=== PATIENT | female | born 1980 | race American Indian/Alaskan Native ===

== ENCOUNTER 2017-03-21 13:38 | Emergency (ER) | payer BC ==
[2017-03-21 13:50] VITALS: BP 155/85
--- NOTE | 2017-03-21 14:57 | ED ---
Throat Pain/Nasal Congestion - HPI Summary HPI Summary: 36 yo F. 3 nights ago awoke with right eye pain. 2 days ago both eyes started to hurt and started a frontal LOCK. 1 night ago when lying down, felt like peripheral vision was limited. Right eye red. LOCK and eye pain worse with lying down. Uses contacts and glasses. No known trauma. Does have some postnasal drip. - History of Current Complaint Chief Complaint: UCHeadache Time Seen by Provider: 03/21/17 14:34 Hx Obtained From: Patient - Epiglottits Risk Factors Epiglottis Risk Factors: Negative - Allergies/Home Medications Allergies/Adverse Reactions: Allergies Allergy/AdvReac Type Severity Reaction Status Date / Time Erythromycin Allergy Intermediate Hives Verified 03/21/17 13:51 Penicillins Allergy Swelling Verified 03/21/17 13:51 Home Medications: Home Medications Ascorbic Acid TAB* [Vitamin C TAB*] 500 mg PO DAILY 03/21/17 [History Confirmed 03/21/17] [id number] [Calcium & Magnesium + Zin 334-134-5 mg] 1 tab PO DAILY 03/21/17 [History Confirmed 03/21/17] Cholecalciferol TAB* [Vitamin D TAB*] 2,000 units PO DAILY 03/21/17 [History Confirmed 03/21/17] PMH/Surg Hx/FS Hx/Imm Hx Previously Healthy: Yes Endocrine/Hematology History: Reports: Hx Blood Disorders Neurological History: Reports: Hx Transient Ischemic Attacks (TIA) - Surgical History Surgery Procedure, Year, and Place: c section x1 Infectious Disease History: No Infectious Disease History: Denies: Traveled Outside the [place] in Last 30 Days - Family History Known Family History: Positive: Other - FAM HX VERICOSE VEINS - Social History Alcohol Use: Occasionally Alcohol Amount: dark lager Substance Use Type: Reports: None Smoking Status (MU): Never Smoked Tobacco Review of Systems Positive: Photophobia, Blurred Vision Positive: Nasal Discharge Cardiovascular: Negative Respiratory: Negative Gastrointestinal: Negative Genitourinary: Negative Musculoskeletal: Negative Skin: Negative Positive: Headache Psychological: Normal All Other Systems Reviewed And Are Negative: Yes Physical Exam Triage Information Reviewed: Yes Vital Signs On Initial Exam: Initial Vitals Temp Pulse Resp BP Pulse Ox 98.9 F 96 16 155/85 100 03/21/17 13:44 03/21/17 13:44 03/21/17 13:44 03/21/17 13:44 03/21/17 13:44 Appearance: Positive: Well-Appearing, No Pain Distress, Well-Nourished Skin: Positive: Warm, Skin Color Reflects Adequate Perfusion Head/Face: Positive: Normal Head/Face Inspection Eyes: Positive: Other: - 3mm pupils, reactive. Positive rt scleral injection. Unable to visualize the retina. Neck: Positive: Supple Respiratory/Lung Sounds: Positive: Clear to Auscultation Cardiovascular: Positive: Normal, RRR Musculoskeletal: Positive: Normal, Strength/ROM Intact Neurological: Positive: Normal, Sensory/Motor Intact - gcs 15, Alert, Oriented to Person Place, Time, CN Intact II-III Psychiatric: Positive: Normal AVPU Assessment: Alert - Alicia Coma Scale Best Eye Response: 4 - Spontaneous Best Motor Response: 6 - Obeys Commands Best Verbal Response: 5 - Oriented Diagnostics - Vital Signs Vital Signs Temp Pulse Resp BP Pulse Ox 03/21/17 13:44 98.9 F 96 16 155/85 100 - Laboratory Lab Statement: Any lab studies that have been ordered have been reviewed, and results considered in the medical decision making process. EENT Course/Dx - Course Course Of Treatment: DISCUSSED WITH DR GAMA, NEUROLOGY. CT BRAIN NEGATIVE. PATIENT WENT DIRECTLY TO DR AUSTIN'S OFFICE FROM THE CLINIC. I SPOKE WITH THE PATIENT AFTER SHE SAW THE SENIOR MIL[facility] ANALYST; THEY SAW [employer]NEAL ULCERS AND THE BACK OF HER EYE WAS NORMAL,. SHE WAS TOLD THE CORNEAL ULCERS WERE HEALING AND THEY WERE PROBABLY CAUSED BY HER CONTACT LENSES AND THE ULCERS WILL GIVE HER THE SX SHE IS EXPERIENCING. I DISCUSSED THIS WITH DR GAMA; WITH NO PAPILLEDEMA AND AND OPTIC CUSE FOR THE PAIN, THERE IS NO NEED FOR FURTHER IMAGING (MR VENOGRAM OF THE BRAIN WAS CONSIDERED PRIOR TO OPHTHAMOLOGY EVALUATION). THIS WAS ALL DISCUSSED WITH THE PATIENT. - Diagnoses Provider Diagnoses: Frontal headache, B/L eye pain Discharge - Discharge Plan Condition: Stable Disposition: HOME Patient Education Materials: Blurred Vision (ED), Eye Pain (ED), General Headache (ED) Referrals: Ramirez Diaz MD [Primary Care Provider] - Additional Instructions: GO DIRECTLY TO THE SENIOR MILITARY ANALYST, DR AUSTIN, FOR AN EYE EXAM. I WILL DISCUSS YOUR CASE WITH NEUROLOGY AND CALL YOU TO LET YOU KNOW IF HE RECOMMENDS YOU GO TO THE EMERGENCY DEPARTMENT FOR FURTHER EVALUATION AND TESTING. FOLLOW UP WITH YOUR DOCTOR. GO TO THE EMERGENCY DEPARTMENT FOR ANY WORSENING OF YOUR CONDITION OR QUESTIONS OR CONCERNS.
--- NOTE | 2017-03-21 15:23 | RAD ---
Indication: Bilateral temporal frontal headaches with eye pressure. Light sensitivity. Denies fever. History of TIAs. Comparison: No relevant prior exams available on the [facility] for comparison. Technique: Noncontrast CT vertex of skull through foramen magnum. Report: The sulci, ventricles, and basal cisterns are normal for age. Taylor matter white matter differentiation is preserved without evidence for edema. No intra or extra axial hemorrhage, mass, or fluid collection detected. Unremarkable partially visualized orbital contents. Unremarkable calvarium and skull base. Unremarkable scalp. The visualized paranasal sinuses and mastoid air spaces are clear. IMPRESSION: Negative unenhanced head CT.
== END 2017-03-21 15:27 | disposition home or self-care (01) ==
LOC: UCEAST 13:38
DX: R51 Headache (principal); H57.13 Ocular pain, bilateral; Z88.1 Allergy status to other antibiotic agents; Z88.0 Allergy status to penicillin; Z86.73 Personal history of transient ischemic attack (TIA), and cerebral infarction without residual deficits
CPT/HCPCS: 70450; 99211; G0463

== ENCOUNTER 2018-04-07 13:12 | Emergency (ER) | payer BC ==
--- NOTE | 2018-04-07 14:35 | ED ---
Abdominal Pain/Female - HPI Summary HPI Summary: A 38 y/o F presents to ED with c/o diffuse abd tenderness onset 4-5 days ago and worsening. The abd pain is radiating to the lower back. Associated sx: diarrhea, fever, rapid HR, frequency, mild LE ache. She notes having had a DVT previously and states the LE ache currently does not feel similar to that. Denies vaginal discharge. [facility]: Last period was 10 days ago which was 1 week early, which is unusual for her. She is not currently menstruating. It was a nml flow. Surgical hx includes . She takes a baby aspirin daily. ' - History of Current Complaint Chief Complaint: EDAbdPain Stated Complaint: ABD PAIN/BACK PAIN Time Seen by Provider: 04/07/18 14:30 Hx Obtained From: Patient Hx Last Menstrual Period: 03/06/17 Onset/Duration: Gradual Onset, Lasting Days, Still Present Timing: Constant Severity Initially: Moderate Severity Currently: Severe Pain Intensity: 9 Pain Scale Used: 0-10 Numeric Location: Diffuse Radiates: Yes Radiates to: Back - lower Associated Signs and Symptoms: Positive: Fever, Back Pain, Urinary Symptoms - frequency, Diarrhea, Other: - pos: LE ache, rapid HR. Negative: Vaginal Bleeding, Vaginal Discharge Allergies/Adverse Reactions: Allergies Allergy/AdvReac Type Severity Reaction Status Date / Time erythromycin base Allergy Hives Verified 04/07/18 13:23 [From Erythrocin] Penicillins Allergy Swelling Verified 04/07/18 13:23 PMH/Surg Hx/FS Hx/Imm Hx Previously Healthy: No Endocrine/Hematology History: Reports: Hx Blood Disorders Neurological History: Reports: Hx Transient Ischemic Attacks (TIA) - Surgical History Surgery Procedure, Year, and Place: c section x1 Infectious Disease History: No Infectious Disease History: Denies: Traveled Outside the [place] in Last 30 Days - Family History Known Family History: Positive: Other - FAM HX VERICOSE VEINS - Social History Occupation: Unemployed - OTHER Lives: With Family Alcohol Use: Occasionally Alcohol Amount: dark lager Substance Use Type: Reports: None Smoking Status (MU): Never Smoked Tobacco Review of Systems Positive: Fever Positive: Palpitations - rapid HR Positive: Abdominal Pain, Diarrhea Positive: frequency. Negative: discharge - vaginal Musculoskeletal: Other - pos: lower back pain, mild LE ache All Other Systems Reviewed And Are Negative: Yes Physical Exam - Summary Physical Exam Summary: Appearance: Well-appearing, Moderate obesity, lying in bed comfortably Skin: Warm, dry, no obvious rash Eyes: sclera anicteric, no conjunctival pallor ENT: mucous membranes moist, pharynx appears normal Neck: Supple, nontender Respiratory: Clear to auscultation, no signs of respiratory distress Cardiovascular: Tachy. No murmurs. Normal distal pulses in tibial and radial bilaterally. Abdomen: Soft, generalized abd tenderness with no overt peritoneal signs, normal active bowel sounds present Musculoskeletal: Normal, Strength/ROM Intact Neurological: A&Ox3, awake and alert, mentation is normal, speech is fluent and appropriate Psychiatric: affect is normal, does not appear anxious or depressed Triage Information Reviewed: Yes Vital Signs On Initial Exam: Initial Vitals Temp Pulse Resp BP Pulse Ox 99.7 F 135 18 166/85 100 04/07/18 13:18 04/07/18 13:18 04/07/18 13:18 04/07/18 13:18 04/07/18 13:18 Vital Signs Reviewed: Yes Diagnostics - Vital Signs Vital Signs Temp Pulse Resp BP Pulse Ox 04/07/18 14:17 99.2 F 137 18 146/87 100 04/07/18 13:18 99.7 F 135 18 166/85 100 - Laboratory Result Diagrams: 04/07/18 14:41 04/07/18 14:41 Lab Statement: Any lab studies that have been ordered have been reviewed, and results considered in the medical decision making process. - CT A/P CT CT Interpretation Completed By: Radiologist Summary of CT Findings: IMPRESSION: No evidence of obstructive uropathy is noted. No other masses or fluid collections are noted. There is left-sided extrarenal pelvis noted. Nonobstructing calculi is noted in the mid and lower pole of the left kidney. ED provider has reviewed this report. Re-Evaluation - Re-Evaluation 1 Re-Evaluation Time: 17:57 Change: Improved Comment: Discussing results with pt. Pt is feeling better and is ready for D/C. Abdominal Pain Fem Course/Dx - Course Course Of Treatment: Pt is a 38 y/o F presenting with diffuse abd tenderness onset 4-5 days ago and worsening. The abd pain is radiating to the lower back. Associated sx: diarrhea, fever, rapid HR, frequency, mild LE ache. Denies vaginal discharge. [facility]: Last period was 10 days ago which was 1 week early. Surgical hx includes . She takes a baby aspirin daily. UA results are WNL. A/P CT shows "No evidence of obstructive uropathy is noted. No other masses or fluid collections are noted. There is left-sided extrarenal pelvis noted. Nonobstructing calculi is noted in the mid and lower pole of the left kidney." Lab works shows WBCs: 20.5, Abs Neuts: 19.68, Lactic acid: 2.2, CRP: 12.68. Will discharge patient home with Dicyclomine and Zofran. - Diagnoses Differential Diagnosis: Positive: Appendicitis, Diverticulitis, Ovarian Cyst, Pancreatitis, Renal Colic, Urinary Tract Infection Provider Diagnoses: Acute abdominal pain Discharge - Sign-Out/Discharge Documenting (check all that apply): Patient Departure - DC - Discharge Plan Condition: Good Disposition: HOME Prescriptions: Dicyclomine CAP* [Bentyl CAP*] 10 mg PO TID PRN #14 cap PRN Reason: Pain - Abdominal Ondansetron ODT TAB* [Zofran 4 MG Odt TAB*] 8 mg PO Q6H PRN #14 tab.odt PRN Reason: Nausea Patient Education Materials: Acute Abdominal Pain (ED) Referrals: Ramirez Diaz MD [Primary Care Provider] - Additional Instructions: The tests we did here showed a elevated white blood cell count, but the urinalysis and CT scan of your abdomen are both normal. I suspect your suffering from a viral infection in your gut as the cause of your symptoms. I have prescribed some medication to help with the nausea and vomiting as well as the abdominal pain, and you should get plenty of fluids to stay hydrated. If your symptoms are not abating over the next couple of days I would like to see you back in the ED. - Billing Disposition and Condition Condition: GOOD Disposition: Home - Attestation Statements Document Initiated by Cortneyibe: Yes Documenting Scribe: Donta Rodriguez Provider For Whom Chris is Documenting (Include Credential): Dr. David Hardy MD Scribe Attestation: I, Donta Rodriguez scribed for Dr. David Hardy MD on 04/07/18 at 1934. Scribe Documentation Reviewed: Yes Provider Attestation: The documentation as recorded by the scribe, Donta Rodriguez accurately reflects the service I personally performed and the decisions made by me, Dr. David Hardy MD Status of Scribe Document: Viewed
[2018-04-07] MEDS ORDERED: Morphine VIAL* 4 MG/ML VIAL (1 ml vial) IV ONE (14:37)
[2018-04-07] MEDS: NS 0.9% 1000 ML* 3,000 ML IV ONE ×2 (14:56→18:06)
[2018-04-07 15:05] LABS: Hematocrit 43 % (35-47); Hemoglobin 14.8 g/dl (12.0-16.0); Mean Corpuscular HGB Conc 34 g/dl (31-36); Mean Corpuscular Hemoglobin 31 pg (27-31); Mean Corpuscular Volume 90 fL (80-97); Mean Platelet Volume 8.7 fL (7.4-10.4); Platelet Count 225 10^3/ul (150-450); Red Blood Count 4.78 10^6/ul (4.00-5.40); Red Cell Distribution Width 14 % (10.5-15); White Blood Count 20.5 10^3/ul (3.5-10.8)
[2018-04-07 15:25] LABS: ABS Neutrophils 19.68 10^3/ul (1.5-7.7); Lymphocytes % 4 %; Neutrophil % 96 %
[2018-04-07 15:29] LABS: ALT 20 U/L (7-52); AST 14 U/L (13-39); Albumin 4.2 g/dL (3.2-5.2); Albumin/Globulin Ratio 1.5 (1-3); Alkaline Phosphatase 40 U/L (34-104); Anion Gap 8 mmol/L (2-11); Blood Urea Nitrogen 9 mg/dL (6-24); C Reactive Protein 12.68 mg/L (<8.01); CO2 Carbon Dioxide 24 mmol/L (22-32); Calcium 9.2 mg/dL (8.6-10.3); Chloride 106 mmol/L (101-111); EGFR Non-African American 96.3 (>60); Globulin 2.8 g/dL (2-4); Glucose 82 mg/dL (70-100); Potassium 3.5 mmol/L (3.5-5.0); Sodium 138 mmol/L (135-145)
[2018-04-07 15:34] LABS: HCG Pregnancy < 0.60 mIU/mL
[2018-04-07] MEDS ORDERED: Iohexol 300* (CONTRAST) 10 ML SDV IV ONE (15:40)
[2018-04-07] MEDS ORDERED: Ondansetron INJ* 2 MG/ML VIAL IV ONE (16:29)
[2018-04-07 16:33] LABS: Urine Appearance Clear; Urine Bilirubin Negative (Negative); Urine Blood Negative (Negative); Urine Color Yellow; Urine Glucose Negative (Negative); Urine Ketones Negative (Negative); Urine Nitrite Negative (Negative); Urine Protein Negative (Negative); Urine Urobilinogen Negative (Negative)
[2018-04-07] MEDS ORDERED: Dicyclomine CAP* 10 MG PO ONE (18:25)
[2018-04-07] MEDS ORDERED: oxyCODONE TAB* 5 MG TAB PO ONE (18:26)
[2018-04-07 21:58] VITALS: BP 112/70
== END 2018-04-07 22:12 | disposition home or self-care (01) ==
LOC: ED 13:12
DX: R10.9 Unspecified abdominal pain (principal); Z86.73 Personal history of transient ischemic attack (TIA), and cerebral infarction without residual deficits; Z79.82 Long term (current) use of aspirin; N20.0 Calculus of kidney
CPT/HCPCS: 36415; 74177; 80053; 81003; 83605; 83690; 84702; 85025; 86140; 87040; 96361; 96374; 96375; 99284; A9270-GY; J2270; J2405; Q9967

== ENCOUNTER → 2018-04-08 18:52 | Emergency (ER) | payer BC ==
[~2018-04-08 18:52] MED LIST: LORazepam INJ* 2 MG/ML 1 ML VIAL IV PUSH ONE; LORazepam TAB(*) 1 MG ONE
--- NOTE | 2018-04-08 19:21 | ED ---
Abdominal Pain/Female - HPI Summary HPI Summary: The patient is a 38 y/o F presenting to [facility] with a chief complaint of LLQ pressure radiating to left lower back tonight while eating dinner tonight. She presented to the ED yesterday with similar symptoms, but tonight she additionally had nausea without vomiting and SOB; she felt normal throughout the day. The pain has since mostly resolved to 5/10 in severity, but she was concerned about the SOB. She has not taken any medication to treat the pain FIRST CRUSHER. Surgical hx includes and uterine polyp removal. She denies hx of panic attacks. - History of Current Complaint Chief Complaint: EDAbdPain Stated Complaint: ABD PAIN Time Seen by Provider: 04/08/18 19:02 Hx Obtained From: Patient Hx Last Menstrual Period: 03/06/17 Onset/Duration: Sudden Onset, Lasting Hours - starting an hour FIRST CRUSHER, Still Present Timing: Hours Severity Initially: Moderate Severity Currently: Mild Pain Intensity: 5 Pain Scale Used: 0-10 Numeric Location: Discrete At: LLQ Radiates: Yes Radiates to: Back - left Character: Other: - pressure Aggravating Factor(s): Nothing Alleviating Factor(s): Nothing Associated Signs and Symptoms: Positive: Nausea, Other: - SOB. Negative: Vomiting Allergies/Adverse Reactions: Allergies Allergy/AdvReac Type Severity Reaction Status Date / Time erythromycin base Allergy Hives Verified 04/07/18 13:23 [From Erythrocin] Penicillins Allergy Swelling Verified 04/07/18 13:23 PMH/Surg Hx/FS Hx/Imm Hx Endocrine/Hematology History: Reports: Hx Blood Disorders Denies: Hx Diabetes Neurological History: Reports: Hx Transient Ischemic Attacks (TIA) - Surgical History Surgery Procedure, Year, and Place: c section x1 Infectious Disease History: No Infectious Disease History: Denies: Traveled Outside the [place] in Last 30 Days - Family History Known Family History: Positive: Other - FAM HX VERICOSE VEINS Negative: Hypertension - Social History Alcohol Use: Occasionally Alcohol Amount: dark lager Substance Use Type: Reports: None Smoking Status (MU): Never Smoked Tobacco Review of Systems Positive: Shortness Of Breath Positive: Abdominal Pain - LLQ pressure radiating to left lower back, Nausea. Negative: Vomiting All Other Systems Reviewed And Are Negative: Yes Physical Exam - Summary Physical Exam Summary: Appearance: arrived quite anxious an tearful but in no acute distress, Well- nourished, lying in bed comfortably Skin: Warm, dry, no obvious rash Eyes: sclera anicteric, no conjunctival pallor ENT: mucous membranes moist, pharynx appears normal Neck: Supple, nontender Respiratory: Clear to auscultation, no signs of respiratory distress Cardiovascular: Normal S1, S2. No murmurs. Normal distal pulses in tibial and radial bilaterally. Abdomen: Soft, nontender, normal active bowel sounds present Musculoskeletal: Normal, Strength/ROM Intact Neurological: A&Ox3, awake and alert, mentation is normal, speech is fluent and appropriate Psychiatric: affect is normal, does not appear anxious or depressed Triage Information Reviewed: Yes Vital Signs On Initial Exam: Initial Vitals Temp Pulse Resp BP Pulse Ox 99.9 F 106 15 118/94 96 04/08/18 18:56 04/08/18 18:56 04/08/18 18:56 04/08/18 18:56 04/08/18 18:56 Vital Signs Reviewed: Yes Diagnostics - Vital Signs Vital Signs Temp Pulse Resp BP Pulse Ox 04/08/18 18:56 99.9 F 106 15 118/94 96 - Laboratory Result Diagrams: 04/08/18 19:31 04/08/18 19:31 Lab Statement: Any lab studies that have been ordered have been reviewed, and results considered in the medical decision making process. Re-Evaluation - Re-Evaluation First Eval Re-Evaluation Time: 20:55 Change: Improved Comment: I spoke with the patient about blood results and discharge home. Abdominal Pain Fem Course/Dx - Course Course Of Treatment: The patient is a 38 y/o F presenting to [facility] with a chief complaint of LLQ pressure radiating to left lower back tonight while eating dinner. She presented to the ED yesterday with similar symptoms, but tonight she additionally had nausea (without vomiting) and SOB, which has since resolved. Upon physical exam, the patient arrived quite anxious and tearful, but no acute distress. In the ED course, the patient was given Ativan. Blood work reveals slightly elevated WBCs, neutrophils, and C-reactive protein. She is diagnosed with nausea, vomiting, and dyspnea. She will be discharged home with education materials and follow up with PCP. She agrees with this plan and understands the need for return to the ED if symptoms worsen. - Diagnoses Provider Diagnoses: Nausea, Vomiting, Dyspnea Discharge - Sign-Out/Discharge Documenting (check all that apply): Patient Departure - Patient will be discharged home. - Discharge Plan Condition: Good Disposition: HOME Patient Education Materials: Acute Nausea and Vomiting (ED), Dyspnea (ED) Referrals: Ramirez Diaz MD [Primary Care Provider] - 1 Week Additional Instructions: Follow up with your primary care provider. Return to the emergency department for any new or worsening symptoms. - Billing Disposition and Condition Condition: GOOD Disposition: Home - Attestation Statements Document Initiated by Chris: Yes Documenting Scribe: Radha Orellana Provider For Whom Chris is Documenting (Include Credential): Dr. David Hardy MD Scribe Attestation: Radha Neal scribed for Dr. David Hardy MD on 04/12/18 at 0157. Scribe Documentation Reviewed: Yes Provider Attestation: The documentation as recorded by the Radha martins accurately reflects the service I personally performed and the decisions made by me, Dr. David Hardy MD Status of Scribe Document: Viewed
[2018-04-08 19:40] LABS: ABS Basophils 0 10^3/ul (0-0.2); ABS Eosinophils 0.2 10^3/ul (0-0.6); ABS Monocytes 0.4 10^3/ul (0-0.8); ABS Neutrophils 11.2 10^3/ul (1.5-7.7); ABS Nucleated RBC 0 10^3/ul; Eosinophil % 1.3 %; Hematocrit 40 % (35-47); Hemoglobin 13.4 g/dl (12.0-16.0); Lymphocyte % 7.6 %; Mean Corpuscular HGB Conc 34 g/dl (31-36); Mean Corpuscular Hemoglobin 31 pg (27-31); Mean Corpuscular Volume 91 fL (80-97); Mean Platelet Volume 8.5 fL (7.4-10.4); Nucleated Red Blood Cells % 0; Platelet Count 213 10^3/ul (150-450); Red Blood Count 4.38 10^6/ul (4.00-5.40); Red Cell Distribution Width 14 % (10.5-15); White Blood Count 12.7 10^3/ul (3.5-10.8)
[2018-04-08 19:57] LABS: Albumin 3.4 g/dL (3.2-5.2); Albumin/Globulin Ratio 1.4 (1-3); BUN/Creatinine Ratio 11.4 (8-20); C Reactive Protein 76.37 mg/L (<8.01); Calcium 8.3 mg/dL (8.6-10.3); EGFR Non-African American 82.3 (>60); Globulin 2.4 g/dL (2-4); Potassium 3.7 mmol/L (3.5-5.0); Total Bilirubin 0.4 mg/dL (0.2-1.0); Total Protein 5.8 g/dL (6.4-8.9)
[2018-04-08 21:04] VITALS: BP 109/72
== END | disposition home or self-care (01) ==
LOC: ED 18:52
DX: R11.2 Nausea with vomiting, unspecified (principal); R06.00 Dyspnea, unspecified; Z86.73 Personal history of transient ischemic attack (TIA), and cerebral infarction without residual deficits; Z88.0 Allergy status to penicillin; R10.32 Left lower quadrant pain
CPT/HCPCS: 36415; 80053; 83605; 83690; 85025; 86140; 96374; 99282; A9270-GY

== ENCOUNTER 2018-10-28 14:00 | Emergency (ER) | payer BC ==
[2018-10-28] MEDS ORDERED: NS 0.9% 1000 ML** 1,000 ML IV ONE ×2 (14:09→14:31)
--- NOTE | 2018-10-28 14:19 | ED ---
GI/ HPI - HPI Summary HPI Summary: This patient is a 38 year old F presenting to [facility] with a chief complaint of extreme diarrhea since 10/26/18. Pt reports having very watery diarrhea (approx. 20 times/day). She reports blood in stool last night. She is also 18 weeks , and feels some tightness, cramping in abdomen. Pt has had no antibiotics, used IVF, complications in previous pregnancies. Pt had a TIA about 2 months ago. Pt denies any fever, chills, erythema of eyes, sore throat, CP, SOB, cough, N/V, dysuria, hematuria, myalgia, edema, rash, or dizziness A0. - History of Current Complaint Chief Complaint: EDOBProblems Time Seen by Provider: 10/28/18 14:08 Stated Complaint: DIARRHEA AND CONTRACTIONS PER PT Hx Obtained From: Patient Hx Last Menstrual Period: 03/06/17 Onset/Duration: Started Days Ago Timing: Constant Current Severity: None Pain Intensity: 0 Location of Pain: Diffuse - lower abdominal pain Associated Signs and Symptoms: Positive: Diarrhea, Abdominal Pain, Other: - neg - erythema of eyes, sore throat, SOB, myalgia, edema, rash. Negative: Dizziness , Nausea, Vomiting, Fever, Hematuria, Dysuria, Chills, Cough, Chest Pain - Allergy/Home Medications Allergies/Adverse Reactions: Allergies Allergy/AdvReac Type Severity Reaction Status Date / Time erythromycin base Allergy Hives Verified 08/31/18 13:25 [From Erythrocin] Penicillins Allergy Swelling Verified 08/31/18 13:25 PMH/Surg Hx/FS Hx/Imm Hx Endocrine/Hematology History: Reports: Hx Blood Disorders Denies: Hx Diabetes Neurological History: Reports: Hx Transient Ischemic Attacks (TIA) - Surgical History Surgery Procedure, Year, and Place: c section x1 Infectious Disease History: No Infectious Disease History: Denies: Traveled Outside the [place] in Last 30 Days - Family History Known Family History: Positive: Other - FAM HX VERICOSE VEINS Negative: Hypertension - Social History Alcohol Use: None Alcohol Amount: dark lager Substance Use Type: Reports: None Smoking Status (MU): Never Smoked Tobacco Review of Systems Negative: Fever, Chills Negative: Erythema Negative: Sore Throat Negative: Chest Pain Negative: Shortness Of Breath, Cough Positive: Abdominal Pain, Diarrhea. Negative: Vomiting, Nausea Negative: dysuria, hematuria Negative: Myalgia, Edema Negative: Rash All Other Systems Reviewed And Are Negative: Yes Physical Exam - Summary Physical Exam Summary: Constitutional: Well-developed, Well-nourished, Alert. (-) Distressed Skin: Warm, Dry HENT: Normocephalic; Atraumatic Eyes: Conjunctiva normal Neck: Musculoskeletal ROM normal neck. (-) JVD, (-) Stridor, (-) Tracheal deviation Cardio: Rhythm regular, rate normal, Heart sounds normal; Intact distal pulses; The pedal pulses are 2+ and symmetric. Radial pulses are 2+ and symmetric. (-) Murmur Pulmonary/Chest wall: Effort normal. (-) Respiratory distress, (-) Wheezes, (-) Rales Abd: Soft, lower abdominal tenderness, (-) Distension, (-) Guarding, (-) Rebound Musculoskeletal: (-) Edema Lymph: (-) Cervical adenopathy Neuro: Alert, Oriented x3 Psych: Mood and affect Normal Triage Information Reviewed: Yes Vital Signs On Initial Exam: Initial Vitals Temp Pulse Resp BP Pulse Ox 99 F 103 18 163/88 99 10/28/18 14:01 10/28/18 14:01 10/28/18 14:01 10/28/18 14:01 10/28/18 14:01 Vital Signs Reviewed: Yes Diagnostics - Vital Signs Vital Signs Temp Pulse Resp BP Pulse Ox 10/28/18 14:01 99 F 103 18 163/88 99 - Laboratory Result Diagrams: 10/28/18 14:27 10/28/18 14:27 Lab Statement: Any lab studies that have been ordered have been reviewed, and results considered in the medical decision making process. Re-Evaluation - Re-Evaluation First Eval Re-Evaluation Time: 15:52 Change: Unchanged Comment: No change in pt status. GIGU Course/Dx - Course Course Of Treatment: This patient is a 38 year old F presenting to [facility] with a chief complaint of extreme diarrhea since 10/26/18. Pt reports having very watery diarrhea (approx. 20 times/day). She reports blood in stool last night. She is also 18 weeks , and feels some tightness, cramping in abdomen. Pt has had no antibiotics, used IVF, complications in previous pregnancies. Pt had a TIA about 2 months ago. A0. Physical exam is normal except for mild lower abdominal tenderness. Blood work obtained. WBC is 12.9, Sodium is 134, carbon dioxide is 20, BUN is 4, BUN/Creatinine Ratio is 6.8, Glucose is 101, C- Reactive Protein is 19.95. In the ED course the patient was given fluids. This patient was signed out from Dr. Hawkins to Dr. Simmons at 1600 on 10/28/18 , awaiting waiting fluid bolus and re-evaluation - Diagnoses Provider Diagnoses: Dehydration Discharge - Sign-Out/Discharge Documenting (check all that apply): Sign-Out Patient Signing out patient TO: Marisa Simmons - This patient was signed out from Dr. Hawkins to Dr. Simmons at 1600 on 10/28/18, pending disposition, awaiting waiting fluid bolus and re-evaluation Patient Received Moderate/Deep Sedation with Procedure: No - Discharge Plan Condition: Stable Disposition: HOME Patient Education Materials: Dehydration (ED) Referrals: Ramirez Diaz MD [Primary Care Provider] - Additional Instructions: Follow up with OBGYN within 2-3 days. RETURN TO ED IF UNABLE TO TOLERATE WATER, CONTRACTION, FATIGUE, ANY WORSENING OR NEW SYMPTOMS. - Attestation Statements Document Initiated by Scribe: Yes Documenting Scribe: Aye Hernandez Provider For Whom Scribe is Documenting (Include Credential): Dr. Eron Hawkins MD Scribe Attestation: Aye Neal, scribed for Dr. Eron Hawkins MD on 10/28/18 at 1756.
[2018-10-28 14:33] LABS: ABS Eosinophils 0.1 10^3/ul (0-0.6); ABS Lymphocytes 0.9 10^3/ul (1.0-4.8); ABS Monocytes 0.7 10^3/ul (0-0.8); ABS Neutrophils 11.2 10^3/ul (1.5-7.7); Eosinophil % 0.6 %; Hematocrit 39 % (35-47); Hemoglobin 13.4 g/dL (12.0-16.0); Lymphocyte % 6.8 %; Mean Corpuscular HGB Conc 34 g/dL (31-36); Mean Corpuscular Hemoglobin 31 pg (27-31); Mean Corpuscular Volume 91 fL (80-97); Mean Platelet Volume 8.8 fL (7.4-10.4); Platelet Count 213 10^3/uL (150-450); Red Blood Count 4.28 10^6 /uL (3.70-4.87); Red Cell Distribution Width 14 % (10-15); White Blood Count 12.9 10^3/uL (3.5-10.8)
[2018-10-28 14:57] LABS: Albumin 3.8 g/dL (3.2-5.2); Albumin/Globulin Ratio 1.4 (1-3); BUN/Creatinine Ratio 6.8 (8-20); C Reactive Protein 19.95 mg/L (<8.01); Calcium 8.9 mg/dL (8.6-10.3); EGFR African American 139.6 (>60); EGFR Non-African American 115.3 (>60); Globulin 2.8 g/dL (2-4); Potassium 3.8 mmol/L (3.5-5.0); Total Bilirubin 0.8 mg/dL (0.2-1.0); Total Protein 6.6 g/dL (6.4-8.9)
--- NOTE | 2018-10-28 16:16 | ED ---
Progress - Progress Note Progress Note: Per HPI "This patient is a 38 year old F presenting to [facility] with a chief complaint of extreme diarrhea since 10/26/18. Pt reports having very watery diarrhea (approx. 20 times/day). She reports blood in stool last night. She is also 18 weeks , and feels some tightness, cramping in abdomen. Pt has had no antibiotics, used IVF, complications in previous pregnancies. Pt had a TIA about 2 months ago. Pt denies any fever, chills, erythema of eyes, sore throat, CP, SOB, cough, N/V, dysuria, hematuria, myalgia, edema, rash, or dizziness A0." This patient was signed out from Dr. Hawkins to Dr. Simmons at 1600 on 10/28/18 , pending disposition, awaiting waiting fluid bolus and re-evaluation. Re- evaluation reveals the patients condition is stable and will be discharged to home with Dx of dehydration. Re-Evaluation - Re-Evaluation First Eval Re-Evaluation Time: 16:35 Change: Improved Comment: Pt's state has improved. Course/Dx - Course Course Of Treatment: This patient was signed out from Dr. Hawkins to Dr. Simmons at 1600 on 10/28/18, pending disposition, awaiting waiting fluid bolus and re-evaluation. Re-evaluation reveals the patients condition is stable and will be discharged to home with Dx of dehydration. - Diagnoses Provider Diagnoses: Dehydration Discharge - Sign-Out/Discharge Documenting (check all that apply): Patient Departure - Discharge Patient Received Moderate/Deep Sedation with Procedure: No - Discharge Plan Condition: Stable Disposition: HOME Patient Education Materials: Dehydration (ED) Referrals: Ramirez Diaz MD [Primary Care Provider] - Additional Instructions: Follow up with OBGYN within 2-3 days. RETURN TO ED IF UNABLE TO TOLERATE WATER, CONTRACTION, FATIGUE, ANY WORSENING OR NEW SYMPTOMS. - Billing Disposition and Condition Condition: STABLE Disposition: Home - Attestation Statements Document Initiated by Scribe: Yes Documenting Scribe: Aye Hernandez Provider For Whom Scribe is Documenting (Include Credential): Dr. Marisa Simmons MD Scribe Attestation: Aye Neal, scribed for Dr. Marias Simmons MD on 10/28/18 at 1821. Scribe Documentation Reviewed: Yes Provider Attestation: The documentation as recorded by the scribe, Aye Hernandez accurately reflects the service I personally performed and the decisions made by me, Dr. Marisa Simmons MD Status of Scribe Document: Viewed
[2018-10-28 16:57] VITALS: BP 117/82
== END 2018-10-28 16:56 | disposition home or self-care (01) ==
LOC: ED 14:00
DX: O26.892 Other specified pregnancy related conditions, second trimester (principal); E86.0 Dehydration; R10.30 Lower abdominal pain, unspecified; Z3A.18 18 weeks gestation of pregnancy; Z88.1 Allergy status to other antibiotic agents; Z88.0 Allergy status to penicillin
CPT/HCPCS: 36415; 80053; 83605; 83690; 85025; 86140; 96360; 96361; 99284

== ENCOUNTER 2019-01-13 16:50 | Emergency (ER) | payer BC ==
--- NOTE | 2019-01-13 17:11 | ED ---
- HPI Summary HPI Summary: This patient is a 38 year old female presenting to [facility] with a chief complaint of complications with . The patient is 29 weeks and she states she has not felt the patient move for 7-8 hours. She states she had abdominal cramping yesterday but has not had any today. She denies any bleeding or discharge. - History of Current Complaint Chief Complaint: EDOBProblems Stated Complaint: HAVENT FELT THE BABY MOVE PER PT Time Seen by Provider: 01/13/19 17:06 Hx Obtained From: Patient Chief Complaint: Concern for Demise Onset/Duration: Started Hours Ago Pain Intensity: 0 - Assessment Hx Now: No SAB: 0 IEA: 0 - Additional Pertinent History Maternal Blood Type and Rh: O Positive - Allergies/Home Medications Allergies/Adverse Reactions: Allergies Allergy/AdvReac Type Severity Reaction Status Date / Time erythromycin base Allergy Hives Verified 01/13/19 16:56 [From Erythrocin] Penicillins Allergy Swelling Verified 01/13/19 16:56 PMH/Surg Hx/FS Hx/Imm Hx Endocrine/Hematology History: Reports: Hx Blood Disorders Denies: Hx Diabetes Neurological History: Reports: Hx Transient Ischemic Attacks (TIA) - Surgical History Surgery Procedure, Year, and Place: c section x1 Infectious Disease History: No Infectious Disease History: Denies: Traveled Outside the [place] in Last 30 Days - Family History Known Family History: Positive: Other - FAM HX VERICOSE VEINS Negative: Hypertension - Social History Alcohol Use: None Alcohol Amount: dark lager Substance Use Type: Reports: None Smoking Status (MU): Never Smoked Tobacco Review of Systems Negative: Fever Positive: Abdominal Pain - Resolved Positive: other - Lack of movement of fetus in All Other Systems Reviewed And Are Negative: Yes Physical Exam - Summary Physical Exam Summary: VITAL SIGNS: Reviewed. GENERAL: Patient is a well-developed and nourished FEMALE who is lying comfortable in the stretcher. Patient is not in any acute respiratory distress. HEAD AND FACE: No signs of trauma. No ecchymosis, hematomas or skull depressions. No sinus tenderness. EYES: PERRLA, EOMI x 2, No injected conjunctiva, no nystagmus. EARS: Hearing grossly intact. Ear canals and tympanic membranes are within normal limits. MOUTH: Oropharynx within normal limits. NECK: Supple, trachea is midline, no adenopathy, no JVD, no carotid bruit, no c- spine tenderness, neck with full ROM. CHEST: Symmetric, no tenderness at palpation. LUNGS: Clear to auscultation bilaterally. No wheezing or crackles. CVS: Regular rate and rhythm, S1 and S2 present, no murmurs or gallops appreciated. ABDOMEN: Soft, non-tender. No signs of distention. No rebound, no guarding, and no masses palpated. Bowel sounds are normal. EXTREMITIES: FROM in all major joints, no edema, no cyanosis or clubbing. NEURO: Alert and oriented x 3. No acute neurological deficits. Speech is normal and follows commands. SKIN: Dry and warm. - Physical Exam Triage Information Reviewed: Yes Vital Signs On Initial Exam: Temp Pulse Resp BP Pulse Ox 98.8 F 98 16 144/86 100 01/13/19 16:54 01/13/19 16:54 01/13/19 16:54 01/13/19 16:54 01/13/19 16:54 Vital Signs Reviewed: Yes Diagnostics - Vital Signs Vital Signs Temp Pulse Resp BP Pulse Ox 01/13/19 16:54 98.8 F 98 16 144/86 100 - Laboratory Lab Statement: Any lab studies that have been ordered have been reviewed, and results considered in the medical decision making process. Course/Dx - Course Assessment/Plan: This patient is a 38 year old female presenting to [facility] with a chief complaint of complications with . The patient is 29 weeks and she states she has not felt the patient move for 7-8 hours. She states she had abdominal cramping yesterday but has not had any today. She denies any bleeding or discharge. heart rate 147 as per OB nurses. I discussed the findings with and Dr. Larkin from all 3 and he recommends NST for approximately 20 minutes. NST strip was done and Dr. Lugo discussed the result with nurse and now he recommends discharge patient home with f/u with his OB. I discussed all the findings and test results with the patient. Patient was instructed to return to the emergency room immediately if any of the symptoms return worsens. Plan of care was discussed with the patient and understands and agrees. All questions were answered at patient satisfaction. There were no further complaints or concerns. Lung exam before discharge: CTA B/ L. Good air exchange. No wheezing or crackles heard. CVS: S1 and S2 present. No murmurs appreciated. Patient is alert and oriented x 3. Patient is hemodynamically stable. Patient will be discharged home with follow up PCP in the next 2-3 days - Diagnoses Provider Diagnoses: Threatened miscarriage - Provider Notifications Discussed Care Of Patient With: Kamryn MORRIS Time Discussed With Above Provider: 17:49 - Advised to perform 20 minute strip of Non-Stress test in the ED. Discharge ED - Sign-Out/Discharge Documenting (check all that apply): Patient Departure - Dischage Patient Received Moderate/Deep Sedation with Procedure: No - Discharge Plan Condition: Stable Disposition: HOME Patient Education Materials: Threatened Miscarriage (ED) Referrals: Ramirez Diaz MD [Primary Care Provider] - Additional Instructions: Return to ED with new or worsening symptoms. - Billing Disposition and Condition Condition: STABLE Disposition: Home - Attestation Statements Document Initiated by Chris: Yes Documenting Scribe: Dedrick Kurtz Provider For Whom Cortneyibe is Documenting (Include Credential): Augie Freire MD Scribe Attestation: Dedrick Neal scribed for Augie Freire MD on 01/13/19 at 2159. Scribe Documentation Reviewed: Yes Provider Attestation: The documentation as recorded by the Dedrick martins accurately reflects the service I personally performed and the decisions made by Augie jones MD Status of Scribe Document: Viewed
[2019-01-13 20:11] VITALS: BP 126/88
== END 2019-01-13 20:00 | disposition home or self-care (01) ==
LOC: ED 16:50
DX: O20.0 Threatened abortion (principal); Z3A.29 29 weeks gestation of pregnancy; Z88.0 Allergy status to penicillin; Z86.73 Personal history of transient ischemic attack (TIA), and cerebral infarction without residual deficits; R10.9 Unspecified abdominal pain
CPT/HCPCS: 99282